=== PATIENT | male | born 1980 | race Two or more races ===

== ENCOUNTER 2016-08-16 08:54 | Day surgery (SDC) | payer OTHER ==
[2016-08-16] VITALS (16 sets, daily range): BP systolic 107–158; BP diastolic 55–94; PULSE 70–119; RESP 9–18; Ht 175.3 cm; Wt 89.3 kg
[~2016-08-16] VITALS: Ht 175.3 cm; Wt 89.3 kg
[~2016-08-16 08:54] MED LIST: SEVOFLURANE 15 MIN ONE
[2016-08-16] MEDS ORDERED: CEFAZOLIN 1 GM INJ ONE (09:36)
[2016-08-16] MEDS ORDERED: PROPOFOL 20 ML ONE (09:36)
[2016-08-16] MEDS ORDERED: LIDOCAINE 2% (SDV) 5 ML INJ ONE (09:36)
[2016-08-16] MEDS ORDERED: FENTAnyl 50 MCG/ML VIAL ONE (09:37)
[2016-08-16] MEDS ORDERED: MIDAZOLAM 1 MG/ML 2 ML INJ ONE (09:37)
[2016-08-16] MEDS ORDERED: CEFAZOLIN 2 GM/50 ML (PMX) 50 ML IVPB ONE (10:00)
[2016-08-16] MEDS ORDERED: INSULIN GLARGINE [LANtus] 3 ML PEN SC ONE (10:00)
[2016-08-16] MEDS ORDERED: BUPIVACAINE 0.25% (MPF) 30 ML INJ ONE (10:29)
[2016-08-16] MEDS ORDERED: INSU100C SQ (10:31)
[2016-08-16] MEDS ORDERED: ACET1TAB40 PO (10:31)
[2016-08-16] MEDS ORDERED: LANT3I SC (10:31)
--- NOTE | 2016-08-16 10:33 | HPN ---
Date/Time of Note Date/Time of Note DATE: 08/16/16 TIME: 10:33 Interval H&P Admission Note Pt. seen H&P reviewed: No system changes JONATAN GOTTI Aug 16, 2016 10:33
[2016-08-16] MEDS ORDERED: SOD CHLORIDE 0.9% 1,000 ML IV SCH (11:00)
[2016-08-16] MEDS ORDERED: ONDANSETRON 4 MG INJ ONE (11:01)
[2016-08-16] MEDS ORDERED: METOCLOPRAMIDE 10 MG INJ ONE (11:01)
[2016-08-16] MEDS ORDERED: HYDROmorphONE 2 MG/ML SYG ONE (11:10)
[2016-08-16] MEDS ORDERED: BUPIVACAINE 0.25% (MPF) 30 ML INJ INJ ONE (11:12)
--- NOTE | 2016-08-16 11:43 | OPR ---
Date/Time of Note Date/Time of Note DATE: 08/16/16 TIME: 11:41 Operative Report Free Text/Dictation s/p circumcision Procedure Date: Aug 16, 2016 Preoperative Diagnosis phimosis Postoperative Diagnosis phimosis Operation Performed circumcision Surgeon: JONATAN GOTTI Co-Surgeon: AARON ENRIQUEZ Anesthesia: general Estimated Blood Loss: none Specimens foreskin Tubes/Drains none Complications: None Pt Condition Post Procedure: stable Disposition: PACU JONATAN GOTTI Aug 16, 2016 11:43
--- NOTE | 2016-08-16 11:47 | PDOCDIS ---
Discharge Instructions CONDITION Patient Condition: Good HOME CARE INSTRUCTIONS: Diet Instructions: Regular ACTIVITY: Activity Restrictions: Slowly Increase Activity FOLLOW UP/APPOINTMENTS Appointments 1-2 weeks OTHER ORDERS: Other Orders: remove dressing in morning tiime. Keep area clean and dry for 3 days. Ok to shower. No baths for 2 weeks. SCHOOL/WORK RELEASE May return to School/Work on: Aug 21, 2016 May return to School/Work with: No Restrictions JONATAN GOTTI Aug 16, 2016 11:47
[2016-08-16] MEDS ORDERED: INSULIN ASPART [NOVOLOG] 3 ML PEN SC ONE (12:00)
[2016-08-16] MEDS ORDERED: OXYCODONE/ACETAMINOPHEN (5/325) TAB PO PRN (12:00)
[2016-08-16] MEDS ORDERED: FENTAnyl 50 MCG/ML VIAL IV PRN (12:00)
[2016-08-16] MEDS ORDERED: PROCHLORPERAZINE 10 MG INJ IV PRN (12:00)
[2016-08-16] MEDS ORDERED: ONDANSETRON 4 MG INJ IV PRN (12:00)
[2016-08-16] MEDS: HYDROmorphONE (0.2 MG/ML) 10ML SYG IV PRN ×2 (12:08→12:18)
--- NOTE | 2016-08-16 17:10 | OPR ---
DATE OF OPERATION: 08/16/2016 PREOPERATIVE DIAGNOSIS: Phimosis. POSTOPERATIVE DIAGNOSIS: Phimosis. PROCEDURE: Circumcision. SURGEON: Selvin Gotti MD. SEWER DIGGER: Dr. Lisa. ANESTHESIA: General. HISTORY: Zay May is a 36-year-old male with chronic phimosis diabetes, hypertension, hyperli pidemia as well as recurrent balanitis requesting circumcision, how the procedure is performed, pote ntial complication, risks, long-term outcome where additionally reviewed. Preoperative consent has been obtained. PROCEDURE: The patient was brought into the operating room and placed on the operating room table i n the supine position. Appropriate pressure points were padded. He received preoperative antibioti c therapy. Time out was undertaken utilizing 10 mL of 0.25% Marcaine without epinephrine. A penile block was obtained and Marcaine was additionally instilled at the base of the penis. A circumferen tial incision was created on the outer aspect of the foreskin and a pinpoint hemostasis was then obt ained utilizing a straight clamp on the ventral aspect of the distal aspect of the foreskin. The de nse scar tissue was excised which allowed for retraction of the foreskin, which was then cleansed wi th Betadine. A large amount of smegma was removed. Care was taken to the glans penis and meatus wh ich were well preserved throughout the entire time. Subsequently, a circumferential incision was cr eated on the inner aspect of the foreskin, which then allowed for removal of the foreskin in its ent irety. Pinpoint hemostasis was attained. The urethra was well preserved. The newly opposed edges were then reapproximated with 3-0 chromic sutures. A sterile dressing was then loosely applied. He was transferred to recovery room in stable condition. Discharged to home on [place] 1 to 2 tab p.o. q.6h. p.r.n., dispense #25, no refill. He will follow up in the office in 2 weeks' time. He may r emove the dressing tomorrow. There were no noted complications and the sponge and needle count were all correct. Dictated By: SELVIN GOTTI MD EGR/NTS Conf#: [id number] DID#: [id number]
--- NOTE | 2016-08-17 11:52 | DS ---
DATE OF ADMISSION: 08/16/2016 DATE OF DISCHARGE: 08/16/2016 ADMITTING DIAGNOSIS: Recurrent balanoposthitis. HOSPITAL COURSE: The patient was admitted to the hospital and underwent a circumcision. He tolerat ed the procedure well. He was then transferred to recovery room. Once the patient was stable, tole rating his diet, he was afebrile and pain was well controlled, he was discharged to home. DISCHARGE INSTRUCTIONS: Activities as tolerated. Keep area clean and dry. Okay to sponge bathe fo r 3 days and then shower. Do not soak in bathtub for a 2-week period of time. Follow up in office in 1 to 2 weeks. He was given a prescription for [place] 5/325, dispense #25 tablets, 1 to 2 tabs p.o . q.6h. p.r.n., no refill. Dictated By: JONATAN GOTTI MD EGR/NTS Conf#: [id number] DID#: [id number] CC: JONATAN GOTTI MD;*EndCC*
== END 2016-08-16 13:35 | disposition home or self-care (01) ==
LOC: SDS 08:54
PROVIDERS: ATTEND Urology
DX: N47.1 Phimosis (principal); I10 Essential (primary) hypertension; E11.9 Type 2 diabetes mellitus without complications
CPT/HCPCS: 54161; 82962; 88304; J0690; J1170; J1815; J2250; J2405; J2765; J3010; Z7512; Z7610

== ENCOUNTER 2016-08-27 18:23 | Emergency (ER) | payer OTHER ==
[~2016-08-27] VITALS: Ht 175.3 cm; Wt 90.5 kg
[~2016-08-27 18:23] MED LIST changes: +ACET1TAB40 PO; +INSU100C SQ; +LANT3I SC; -SEVOFLURANE 15 MIN ONE
[2016-08-27 18:31] VITALS: Ht 175.3 cm; Wt 90.5 kg
[2016-08-27] MEDS ORDERED: NEOM28.33 TP (19:44)
[2016-08-27] MEDS ORDERED: CEPH-443 PO (19:44)
--- NOTE | 2016-08-27 19:49 | ERD ---
ER Documentation Chief Complaint Date/Time DATE: 08/27/16 TIME: 19:45 Chief Complaint s/p circumcision x 9 days ago, c/o penile swelling HPI Patient is a 36-year-old male who is postoperative day 11 for circumcision. He states that he had chronic phimosis, diabetes and would get recurrent balanitis. He states that his surgery was on 08/16/16. His surgeon was Dr. Franks. He states that he has increase in pain to his penis for the last 2 days. She denies fever or chills. Denies drainage, bleeding, pus or any abnormal discharge from the wound or his penis. He is concerned of an infection. He is taking [place] as prescribed for his pain. Denies abdominal pain, nausea, vomiting, diarrhea. Denies leg pain or swelling. Denies headache or dizziness. He is not on any M antibiotics and is not applied any other medications on his wound. He states that he missed his follow-up appointment with his doctor as he did not know when the appointment was. No other complaints. ROS All systems reviewed and are negative except as per history of present illness. Medications Home Meds Active Scripts Neomycin Ruffin/Bacitrac Zn/Poly (Neosporin Ointment) 28.3 Gm Oint...g., 28.3 GM TP BID for 10 Days Prov:ROSS WOODY PA-C 08/27/16 Cephalexin* (Keflex*) 500 Mg Capsule, 500 MG PO QID for 5 Days, CAP Prov:ROSS WOODY PA-C 08/27/16 Reported Medications Acetaminophen with Codeine (Acetaminophen-Cod #3 Tablet) 1 Each Tablet, 1 TAB PO Q6H, #7 TAB 08/16/16 Insulin Lispro (Humalog) 100 Unit/1 Ml Cartridge, 5 UNIT SQ WITH MEALS 08/16/16 Insulin Glargine* (Lantus*) 100 Unit/Ml Soln, 20 UNIT SC DAILY, #1 VIAL 08/16/16 Allergies Allergies: Coded Allergies: No Known Drug Allergies (Unverified Allergy, Unknown, 08/27/16) PMhx/Soc History of Surgery: Yes (circumcision 08/2016) Anesthesia Reaction: No Hx Neurological Disorder: No Hx Respiratory Disorders: No Hx Cardiac Disorders: Yes (HTN) Hx Psychiatric Problems: No Hx Miscellaneous Medical Probl: No Hx Alcohol Use: Yes (RARE) Hx Substance Use: No Hx Tobacco Use: No Smoking Status: Never smoker Physical Exam Vitals Vital Signs Date Time Temp Pulse Resp B/P Pulse Ox O2 Delivery O2 Flow Rate FiO2 08/27/16 18:31 98.6 111 18 129/68 99 Physical Exam GENERAL: Well-developed, well-nourished male. Appears in no acute distress. LUNG: Clear to auscultation bilaterally. No rhonchi, wheezing, rales or coarse breath sounds. HEART: Regular rate and rhythm. No murmurs, rubs or gallops. : Slight swelling to the area of suture placement. No drainage. Granulation tissue. No bleeding. No pus. No erythema. Extremities: Equal pulses bilaterally. No peripheral clubbing, cyanosis or edema. No unilateral leg swelling. NEUROLOGIC: Alert and oriented. Moving all four extremities. 5/5 strength in all extremities. Normal speech. Steady gait. SKIN: Normal color. Warm and dry. No rashes or lesions. Capillary refill < 2 seconds Procedures/MDM ER COURSE: I kept the patient and/or family informed of laboratory and diagnostic imaging results throughout the emergency room course. MEDICAL DECISION MAKING: This is a 36-year-old male who presents with wound check after sustaining a circumcision on 08/16/16. Vital signs were reviewed. Patient is afebrile. Patient is not hypoxic. Patient is not toxic or ill-appearing. I consulted with Dr. Han who came and examined the patient. Patient will be treated prophylactically with antibiotics. Low suspicion for infection. Low suspicion for necrotizing fasciitis, SJS, toxic epidermal necrolysis, [place], erythema multiforme, gangrene, scarlet fever, meningococcemia, sepsis, anaphylaxis, sepsis, deep space infection, or foreign body. DISCHARGE: At this time, patient is stable for discharge and outpatient management with no new complaints during the ER course. Patient was sent home with Keflex, Neosporin and to apply warm compresses a few times a day for 20 minutes. Advised patient to follow-up with Dr. Franks tomorrow for further examination and follow-up.. Patient will be discharged home with instructions to recheck for new or worsening symptoms such as fever, nausea, weakness, LOC and to follow up with primary care in the next 1-2 days. Patient was advised to return to the ER for any new or worsening symptoms. Plan was discussed and patient and/ or family understands and agrees. Home instructions were given. Departure Diagnosis: Primary Impression: Encounter for postoperative wound check Condition: Stable Patient Instructions: Post Op Wound Check, Pain Additional Instructions: Follow up with Dr. Franks tomorrow. Use Neosporin and warm compresses 3 times a day for 20 minutes. Call your primary care doctor TOMORROW for an appointment during the next 1-2 days.See the doctor sooner or return here if your condition worsens before your appointment time. ROSS WOODY PA-C Aug 27, 2016 19:49
[2016-08-27 19:57] VITALS: BP 121/74; PULSE 85; RESP 17; TEMP 98.3
== END 2016-08-27 19:57 | disposition home or self-care (01) ==
LOC: FTE 18:23
DX: Z48.01 Encounter for change or removal of surgical wound dressing (principal); I10 Essential (primary) hypertension; E11.9 Type 2 diabetes mellitus without complications; Z79.4 Long term (current) use of insulin
CPT/HCPCS: 99284